=== PATIENT | male | born 1950 | race Caucasian/White ===

== ENCOUNTER 2020-11-24 17:37 | Inpatient (IN) | payer MEDICARE, OTHER ==
[~2020-11-24] VITALS: Ht 185 cm; Wt 115.6 kg
[2020-11-24] MEDS ORDERED: ONDANSETRON 4 MG/2 ML (SDV) Z0FRAN ONE (18:23)
[2020-11-24] MEDS ORDERED: NS IV 1000 ML 1,000 ML ONE (18:23)
[2020-11-24] MEDS ORDERED: ONDANSETRON 4 MG/2 ML (SDV) Z0FRAN IVP ONE (18:30)
[2020-11-24] MEDS ORDERED: NS IV 1000 ML 1,000 ML IV SCH ×2 (18:30→21:00)
--- NOTE | 2020-11-24 18:34 | ED General ---
General Stated Complaint: COVID + FEVER/CHILLS/NAUSEA/COUGH/HEADACHE Source of Information: Patient Exam Limitations: No Limitations History of Present Illness Date Seen by Provider: Nov 24, 2020 Time Seen by Provider: 18:15 Initial Comments Patient is a 70-year-old male who presents to the emergency department today with a chief complaint of "severe" headache, dry cough, feeling short of breath, nausea and upset stomach. Patient states he has had his symptoms for about a week and they suddenly got worse today. Patient does state that he has had a positive Covid test within the last week or so he does not recall the date at this time. Patient has a history of diabetes and hypertension. He denies any earache sore throat runny nose congestion. He denies chest pain. He states his cough is "terrible". Denies abdominal pain but does have nausea as stated. Denies problems with bowel or bladder. All other review of systems reviewed and negative except as stated. Timing/Duration: 1 Week Severity: Moderate Associated Systoms: Cough, Fever/Chills, Headaches, Loss of Appetite, Nausea/Vomiting, Shortness of Air Allergies and Home Medications Allergies Coded Allergies: No Known Drug Allergies (Unverified , 11/24/20) Home Medications Allopurinol 300 Mg Tablet, 300 MG PO 1600, (Reported) Aspirin 81 Mg Tablet.dr, 81 MG PO 1600, (Reported) Atorvastatin Calcium 40 Mg Tablet, 40 MG PO 1600, (Reported) Cholecalciferol (Vitamin D3) 50 Mcg Tablet, 50 MCG PO 1600, (Reported) Dexamethasone 6 Mg Tablet, 6 MG PO DAILY Prescribed by: DIEGO CLEANING on 11/28/20 1249 Empagliflozin 25 Mg Tablet, 25 MG PO 1600, (Reported) Glimepiride 4 Mg Tablet, 4 MG PO BID, (Reported) Ibuprofen 800 Mg Tablet, 800 MG PO Q8H PRN for PAIN-MILD (1-4), (Reported) Patrick-3 Acid Ethyl Esters 1 Gm Capsule, 1 GM PO 1600, (Reported) Patient Home Medication List Home Medication List Reviewed: Yes Review of Systems Review of Systems Constitutional: see HPI, chills, fever, malaise EENTM: no symptoms reported Respiratory: cough; No phlegm; short of breath Cardiovascular: no symptoms reported Gastrointestinal: loss of appetite, nausea Genitourinary: no symptoms reported Musculoskeletal: other (Body aches) Skin: no symptoms reported All Other Systems Reviewed Negative Unless Noted: Yes Physical Exam Vital Signs Vital Signs - First Documented 11/24/20 11/24/20 11/25/20 18:09 22:08 00:38 Temp 37.8 Pulse 109 Resp 24 B/P (MAP) 102/73 (83) Pulse Ox 91 O2 Delivery Room Air O2 Flow Rate 2.00 FiO2 28 Capillary Refill : Height, Weight, BMI Height: '" Weight: lbs. oz. kg; BMI Method: General Appearance: No Apparent Distress, WD/WN Eyes: Bilateral Eye Normal Inspection, Bilateral Eye PERRL, Bilateral Eye EOMI Neck: Normal Inspection, Supple Respiratory: Chest Non Tender, Lungs Clear, Normal Breath Sounds, No Accessory Muscle Use, No Respiratory Distress Cardiovascular: Regular Rate, Rhythm, No Murmur Gastrointestinal: Normal Bowel Sounds, Non Tender, Soft Extremity: Normal Capillary Refill, Normal Inspection, Normal Range of Motion, Non Tender, No Calf Tenderness, No Pedal Edema Neurologic/Psychiatric: Alert, Oriented x3, No Motor/Sensory Deficits, Normal Mood/Affect, manager cash II-XII Norm as Tested Skin: Normal Color, Warm/Dry Focused Exam Lactate Level Lactic Acid Level Progress/Results/Core Measures Suspected Sepsis SIRS Temperature: Pulse: Respiratory Rate: Blood Pressure / Mean: Results/Orders Lab Results Laboratory Tests Test 11/27/20 11:19 11/27/20 14:19 11/27/20 16:39 11/27/20 20:08 Range/Units Glucometer 200 H 160 H 165 H 70-110 MG/DL Lab Scanned Report Transfusion Reaction Form [id number] Test 11/28/20 05:26 11/28/20 11:26 Range/Units Glucometer 127 H 162 H 70-110 MG/DL Micro Results My Orders Medications Given in ED Vital Signs/I&O Capillary Refill : Progress Note : Time: 18:33 Progress Note 70-year-old male presents with a chief complaint of Covid positive, headaches, nausea, body aches, dry cough. Evaluation today includes a physical exam, single view chest x-ray, basic laboratory studies including CRP sed rate D- dimer. Patient does appear that he feels unwell. He is satting about 90 to 92% on room air. Blood pressure is somewhat soft with a systolic of about 111. Patient will be treated here in the emergency department with 1 L of normal saline and 8 mg of Zofran IV. Will also treat his headache with some Tylenol orally. His temperature is 99.9. Laboratory studies are pending at this time 1939 Patient labs reviewed. Patient has a slightly low white count at 2.6 as well as slightly low platelets. Chemistry is basically within normal limits. CRP is mildly elevated. D-dimer is mildly elevated. Chest x-ray shows patchy peripheral infiltrates bilaterally consistent with pneumonia. As the patient is Covid positive this is likely all viral pneumonia. I was able to discover that the patient's Covid test was on 21 November. 2009 Patient is feeling better, oxygen saturations consistently 90-92 I did see one episode of an 88% but this resolved back up to above 90/91. I discussed with the patient taking the monoclonal antibody Bamlanivimab. Discussed that this is an investigational and unapproved drug that is currently under the emergency use authorization for COVID-19. The patient is interested in receiving this. Discussed with him possible side effects including fever chills nausea headache shortness of breath blood pressure issues etc. We discussed side effects including pain bleeding and bruising soreness and swelling and possible infection at infusion site. Patient verbalizes understanding of the risks and benefits of receiving this investigational drug. Patient wishes to proceed. 2029 Noted that patient's oxygen saturations continue to dip even into the 86% range. Patient cannot maintain off oxygen above 90%. At this time we will admit the patient for hypoxia related to COVID-19 pneumonia. ECG Initial ECG Impression Date: Nov 24, 2020 Diagnostic Imaging Diagonstic Imaging: Xray Plain Films/CT/US/NM/MRI: chest Comments [facility]. [place], [place] NAME: GRABIEL LAY [facility] REC#: [id number] PT STATUS: REG ER : 1950 PHYSICIAN: ANNA ODEN MD ADMIT DATE: 11/24/20/ER Draft Date of Exam:11/24/20 CHEST 1 VIEW, AP/PA ONLY EXAMINATION: Chest 1 view. HISTORY: Shortness of breath, cough. COMPARISON: None available. FINDINGS: Patchy airspace opacities peripherally in the lungs. No pleural effusion or pneumothorax. Heart size is normal. IMPRESSION: Patchy airspace opacities in the lungs consistent with pneumonia. Dictated on workstation # [id number] Dict: 11/24/201929 Trans: 11/24/201931 [facility] [id number] Interpreted by: MISHA ALBA MD Electronically signed by: Departure Impression Primary Impression: Pneumonia due to COVID-19 virus Disposition: HOME, SELF-CARE Condition: Stable Departure-Patient Inst. Decision time for Depature: 20:13 [address]errals: [facility] [place],LOCAL PHYSICIAN (PCP) Primary Care Physician Patient Instructions: Coronavirus Disease 2019 (COVID-19) (DC) Add. Discharge Instructions: Drink plenty of fluids to stay well-hydrated Use the inhaler I have prescribed, albuterol 2 puffs every 4-6 hours as needed for shortness of breath. We have given you information for the monoclonal antibody injection. You will be contacted regarding a time for infusion of this medication. Scripts Dexamethasone (Decadron) 6 Mg Tablet 6 MG PO DAILY, #6 TAB Prov: DIEGO CLEANING MD 11/28/20 ANNA ODEN MD Nov 24, 2020 18:34
[2020-11-24 18:39] LABS: BASOPHILS % (AUTO) 0 % (0-10); HEMATOCRIT 49 % (40-54); LYMPHOCYTES % (AUTO) 27 % (12-44); MEAN CORPUSCULAR VOLUME 87 fL (80-99)
[2020-11-24 18:41] LABS: EOSINOPHILS % (AUTO) 1 % (0-10); HEMOGLOBIN 15.8 g/dL (13.3-17.7); LYMPHOCYTES # (AUTO) 0.7 10^3/uL (1.0-4.0); MEAN CORPUSCULAR HEMOGLOBIN 28 pg (25-34); MEAN CORPUSCULAR HGB CONC 32 g/dL (32-36); MEAN PLATELET VOLUME 11.7 fL (9.0-12.2); MONOCYTES # (AUTO) 0.2 10^3/uL (0.0-1.0); MONOCYTES % (AUTO) 8 % (0-12); NEUTROPHILS # (AUTO) 1.7 10^3/uL (1.8-7.8); NEUTROPHILS % (AUTO) 63 % (42-75); PLATELET COUNT 106 10^3/uL (130-400); WHITE BLOOD COUNT 2.6 10^3/uL (4.3-11.0)
[2020-11-24] MEDS ORDERED: ACETAMINOPHEN 500 MG TAB (TYLENOL) PO ONE (18:45)
[2020-11-24 18:54] LABS: ALANINE AMINOTRANSFERASE 22 U/L (0-55); ALBUMIN 3.7 GM/DL (3.2-4.5); ALKALINE PHOSPHATASE 73 U/L (40-136); BILIRUBIN,TOTAL 1.2 MG/DL (0.1-1.0); BUN/CREATININE RATIO 16; CALCIUM 8.7 MG/DL (8.5-10.1); CARBON DIOXIDE 24 MMOL/L (21-32); CHLORIDE 102 MMOL/L (98-107); CREATININE SERUM 0.99 MG/DL (0.60-1.30); GFR ESTIMATED > 60; GLUCOSE 108 MG/DL (70-105); POTASSIUM 3.4 MMOL/L (3.6-5.0); SODIUM 137 MMOL/L (135-145); TOTAL PROTEIN 7.2 GM/DL (6.4-8.2)
[2020-11-24 19:01] LABS: ERYTHROCYTE SEDIMENTATION RATE 6 MM/HR (0-30)
--- NOTE | 2020-11-24 19:22 | NUR ---
RADIOLOGY AT BEDSIDE
--- NOTE | 2020-11-24 19:32 | Diagnostic Imaging Report ---
EXAMINATION: Chest 1 view. HISTORY: Shortness of breath, cough. COMPARISON: None available. FINDINGS: Patchy airspace opacities peripherally in the lungs. No pleural effusion or pneumothorax. Heart size is normal. IMPRESSION: Patchy airspace opacities in the lungs consistent with pneumonia. Dictated by: Dictated on workstation # [email or web address]
[2020-11-24] MEDS ORDERED: HCTZ 25MG (20:28)
[2020-11-24] MEDS ORDERED: ALLOPURINOL 300MG (20:28)
[2020-11-24] MEDS ORDERED: JARDIANCE 25MG (20:28)
[2020-11-24] MEDS ORDERED: ASPIRIN (20:28)
[2020-11-24] MEDS ORDERED: LIPITOR (20:28)
[2020-11-24] MEDS ORDERED: VITAMIN D (20:28)
[2020-11-24] MEDS ORDERED: GABAPENTIN 300MG (20:28)
[2020-11-24] MEDS ORDERED: LISINOPRIL 40MG (20:28)
[2020-11-24] MEDS ORDERED: GLIMEPIRIDE 4 MG (20:28)
[2020-11-24] MEDS ORDERED: RT-ALBUINH IH (20:42)
--- NOTE | 2020-11-24 20:48 | NUR ---
THIS RN ET DR ODEN IN TO TALK W/ PT. PT REQUESTING TO NOT STAY, STATES HE THINKS HE'LL "FEEL BETTER AT HOME." SPO2 RANGING BETWEEN 86% ET 91%. DR ODEN AWARE. PT'S SPO2 DOES INCREASE WHEN HE'S TALKING BUT WHEN RESTING DROPS. NO OTHER C/O VOICED.
--- NOTE | 2020-11-24 21:00 | NUR ---
REPORT TO GENEVA SAENZ
[2020-11-24] MEDS ORDERED: NS IV 1000 ML 1,000 ML IV ONE (21:45)
[2020-11-24] MEDS ORDERED: RT-ALBUTEROL INHALER HFA (VENTOLIN HFA) 18 GM IH SCH (22:00)
--- NOTE | 2020-11-24 22:20 | NUR ---
GRABIEL LAY admitted to room 424-1, with an admitting diagnosis of Covid-19, on 11/24/20 from [facility] ED via Wheelchair, accompanied by ED RN.GRABIEL LAY introduced to surroundings, call light, bed controls, phone, TV, temperature control, lights, meal times, smoking policy, visitor policy, side rail policy, bathrooms and showers. Patient Rights given to patient in the handbook. GRABIEL LAY verbalizes understanding that [facility] is not responsible for the loss or damage to any personal effects or valuables that are kept in the patients posession during their hospitalization. GRABIEL LAY verbalizes understanding of Interdisciplinary Patient Education.
[2020-11-24 22:22] VITALS: BP 116/68
[2020-11-24] MEDS ORDERED: ACETAMINOPHEN 500 MG TAB (TYLENOL) PO PRN (22:30)
[2020-11-24 22:32] VITALS: BP 116/68
[2020-11-24] MEDS: NS IV 1000 ML 1,000 ML IV SCH (23:03)
[2020-11-25] VITALS (10 sets, daily range): BP systolic 102–121; BP diastolic 59–77
[2020-11-25] MEDS: RT-ALBUTEROL INHALER HFA (VENTOLIN HFA) 18 GM IH SCH ×4 (03:21→21:40)
[2020-11-25] MEDS: inSUlin ASPART (NovoLOG) 1 UNIT/0.01 ML (CHARGE PER UNIT) SC SCH ×4 (05:14→20:39)
[2020-11-25 05:30] LABS: BASOPHILS % (AUTO) 0 % (0-10); LYMPHOCYTES % (AUTO) 25 % (12-44); MEAN CORPUSCULAR HEMOGLOBIN 28 pg (25-34); MEAN CORPUSCULAR HGB CONC 32 g/dL (32-36); MEAN CORPUSCULAR VOLUME 88 fL (80-99)
[2020-11-25 05:32] LABS: EOSINOPHILS % (AUTO) 0 % (0-10); HEMATOCRIT 43 % (40-54); HEMOGLOBIN 13.7 g/dL (13.3-17.7); LYMPHOCYTES # (AUTO) 0.6 10^3/uL (1.0-4.0); MONOCYTES # (AUTO) 0.2 10^3/uL (0.0-1.0); MONOCYTES % (AUTO) 8 % (0-12); NEUTROPHILS # (AUTO) 1.7 10^3/uL (1.8-7.8); NEUTROPHILS % (AUTO) 67 % (42-75); PLATELET COUNT 93 10^3/uL (130-400); WHITE BLOOD COUNT 2.6 10^3/uL (4.3-11.0)
[2020-11-25 05:57] LABS: ALANINE AMINOTRANSFERASE 18 U/L (0-55); ALBUMIN 3.2 GM/DL (3.2-4.5); ALKALINE PHOSPHATASE 64 U/L (40-136); BUN/CREATININE RATIO 18; CALCIUM 7.7 MG/DL (8.5-10.1); CARBON DIOXIDE 24 MMOL/L (21-32); CHLORIDE 106 MMOL/L (98-107); CREATININE SERUM 0.82 MG/DL (0.60-1.30); GFR ESTIMATED > 60; GLUCOSE 89 MG/DL (70-105); SODIUM 138 MMOL/L (135-145); TOTAL PROTEIN 5.9 GM/DL (6.4-8.2)
[2020-11-25] MEDS ORDERED: REMDESIVIR INJ 200 MG in NS (IVPB) 210 ML IV ONE (09:00)
[2020-11-25] MEDS: NS IV 1000 ML 1,000 ML IV SCH ×2 (09:24→18:27)
[2020-11-25] MEDS ORDERED: LISI40TA PO (13:47)
[2020-11-25] MEDS ORDERED: EMPA25TA PO (13:47)
[2020-11-25] MEDS ORDERED: IBUP-1780 PO (13:47)
[2020-11-25] MEDS ORDERED: ALLO300T2 PO (13:47)
[2020-11-25] MEDS ORDERED: CHOL200025 PO (13:47)
[2020-11-25] MEDS ORDERED: HYDR25TA4 PO (13:47)
[2020-11-25] MEDS ORDERED: GLIM4TAB5 PO (13:47)
[2020-11-25] MEDS ORDERED: ATOR40TA70 PO (13:47)
[2020-11-25] MEDS ORDERED: OMEG-105 PO (13:47)
[2020-11-25] MEDS ORDERED: ASPI-1238 PO (13:47)
--- NOTE | 2020-11-25 14:08 | NUR ---
SPOKE WITH THE PT (I CALLED HIS CELL PHONE) AND WENT THRU THE EXT ME HISTORY TO COMPLETE THE MED REC PT WAS ABLE TO NAME ALL HIS MEDICATIONS WELL WHEN/HOW HE TAKES EACH OTC MEDS: LAINA Avila
--- NOTE | 2020-11-25 14:40 | History & Physical-Hospitalist ---
History of Present Illness HPI/Chief Complaint Pt is a 70yoCM with a PMH of HTN and NIDDMII who presented to the ER due to headache, cough, and SOB. He states he was in a casion in [place] last week and then became symptomatic with chills and fever roughly 9 days ago. He tested positive for COVID and continued to do worse prompting evaluation in the ER. He was found to be hypoxic with oxygen saturations in the mid 80s and admitted for further care. This afternoon he reports he is feeling better. He denies any cough to me but is actively coughing while I am in the room. Source: patient Date Seen 11/25/20 Time Seen by a Provider: 15:38 Attending Physician Stefanie Ferguson MD PCP No,Local Physician Referring Physician Date of Admission Nov 24, 2020 at 21:01 Home Medications & Allergies Home Medications Reviewed patient Home Medication Reconciliation performed by pharmacy medication reconciliations satellite installation technician and/or nursing. Patients Allergies have been reviewed. Allergies Allergies Coded Allergies No Known Drug Allergies (Sveptxqelv64/27/20) Past Xhicety-Hlhfyh-Nltpqs Hx Past Med/Social Hx: Reviewed Nursing Past Med/Soc Hx Patient Social History Alcohol Use: Occasionally Uses Recreational Drug Use: No Smoking Status: Never a Smoker Recent Foreign Travel: No Contact w/other who traveled: No Recent Hopitalizations: No Recent Infectious Disease Expo: No Immunizations Up To Date Date of Pneumonia Vaccine: Nov 24, 2018 Date of Influenza Vaccine: Sep 24, 2020 Past Medical History Cardiac: Hypertension Endocrine: Diabetes, Non-Insulin dep History of Blood Disorders: No Adverse Reaction to Blood Denny: No Family History Reviewed Nursing Family Hx No Pertinent Family Hx Review of Systems Constitutional: chills, diaphoresis, fever, malaise EENTM: no symptoms reported Respiratory: cough, short of breath Cardiovascular: No chest pain Gastrointestinal: No abdominal pain; nausea; No vomiting Genitourinary: no symptoms reported Musculoskeletal: no symptoms reported Skin: no symptoms reported Psychiatric/Neurological: Headache Physical Exam Physical Exam Vital Signs Vital Signs - First Documented 11/24/20 11/24/20 11/25/20 18:09 22:08 00:38 Temp 37.8 Pulse 109 Resp 24 B/P (MAP) 102/73 (83) Pulse Ox 91 O2 Delivery Room Air O2 Flow Rate 2.00 FiO2 28 Capillary Refill : Less Than 3 Seconds Height, Weight, BMI Height: '" Weight: lbs. oz. kg; 33.77 BMI Method: General Appearance: No Apparent Distress, WD/WN HEENT: PERRL/EOMI, Moist Mucous Membranes; No Scleral Icterus (L), No Scleral Icterus (R) Neck: Normal Inspection, Supple Respiratory: Lungs Clear, No Accessory Muscle Use, Other (on 2lpm) Cardiovascular: Regular Rate, Rhythm, No Murmur Gastrointestinal: Normal Bowel Sounds, Non Tender, Soft Extremity: Normal Capillary Refill, No Calf Tenderness, No Pedal Edema Neurologic/Psychiatric: Alert, Oriented x3, Normal Mood/Affect Results Results/Procedures Labs Laboratory Tests 11/24/20 18:19 11/25/20 05:04 Patient resulted labs reviewed. Imaging: Reviewed Imaging Report Imaging [facility]. [place], [place] NAME: GRABIEL LAY [facility] REC#: [id number] PT STATUS: ADM IN : 1950 PHYSICIAN: ANNA ODEN MD ADMIT DATE: 11/24/20 Signed Date of Exam:11/24/20 CHEST 1 VIEW, AP/PA ONLY EXAMINATION: Chest 1 view. HISTORY: Shortness of breath, cough. COMPARISON: None available. FINDINGS: Patchy airspace opacities peripherally in the lungs. No pleural effusion or pneumothorax. Heart size is normal. IMPRESSION: Patchy airspace opacities in the lungs consistent with pneumonia. Dictated by: Dictated on workstation # [email or web address] Dict: 11/24/201929 Trans: 11/24/202199 [facility] [phone] Interpreted by: MISHA ALBA MD Electronically signed by: MISHA ALBA MD 11/24/202199 Assessment/Plan Admission Diagnosis Acute hypoxic respiratory failure due to COVID19 Admission Status: Inpatient Order (span 2 midnights) Reason for Inpatient Admission: see below Assessment and Plan Acute hypoxic respiratory failure due to COVID19 Continue on decadron and Remdesivir Convalescent plasma ordered Per Blood Bank plasma currently on around 5 days back log Procalcitonin is negative so defer abx MAT Protocol IS Lovenox HTN Reports history of but BP WNL currently, trend Hyperglycemia Likely worsened by decadron, trend Diagnosis/Problems Diagnosis/Problems (1) Acute respiratory failure (2) Pneumonia due to COVID-19 virus Status: Acute Clinical Quality Measures DVT/VTE Risk/Contraindication: Risk Factor Score Per Nursin RFS Level Per Nursing on Admit: 4+=Very High DIEGO CLEANING MD Nov 25, 2020 14:39
--- NOTE | 2020-11-25 15:28 | NUR ---
"RD ASSESSMENT PMHx: DM; HTN; PT INTERACTION: Note pt is currently in COVID isolation, per chart review. Note all diet information for nutrition assessment is per Yefri RN, or per chart review. Yefri states current appetite appears good. Note avg PO intake 63% x2meal, per chart review. Yefri states no issues with nausea, vomiting, constipation, or diarrhea that he is aware of. Note last BM was 11/25, and pt not currently on bowel regimen per chart review. Note unable to determine recent wt hx, per chart review. Note unable to determine current level of DM management and note unable to determine recent HbA1c, per chart review. ABNORMAL NUTRITION-RELATED LAB VALUES LOW: K 3.0; Ca 7.7; Pro 5.9; HIGH: AST 40; Est. kcal needs: 3008-7325 kcal | 15-20 kcal/kg Est. Pro needs: 93-116 g Pro | 0.8-1.0 g Pro/kg PES STATEMENT: Inadequate oral intake (NI-2.1) related to loss of appetite as evidenced by chart review, and avg PO intake 63% x2meal. INTERVENTION: Continue with current diet order of CHO 60g/m 1snack diet. Pt may benefit from nutrition supplementation if PO intake declines. Did not offer diet education on DM management d/t isolation precautions. Will continue to follow and reassess as pt needs, intake, and status change. Jodi TOVAR, MS RD LD [phone] cell"
[2020-11-25] MEDS: ENOXAPARIN 40 MG/0.4 ML (LOVENOX) SYR SQ SCH (17:57)
--- NOTE | 2020-11-25 18:30 | NUR ---
Resident is receiving Convalescent Plasma, tolerating well.
[2020-11-26] VITALS (7 sets, daily range): BP systolic 96–122; BP diastolic 56–70
[2020-11-26] MEDS: RT-ALBUTEROL INHALER HFA (VENTOLIN HFA) 18 GM IH SCH ×4 (02:05→21:54)
[2020-11-26] MEDS: NS IV 1000 ML 1,000 ML IV SCH (04:18)
[2020-11-26] MEDS: inSUlin ASPART (NovoLOG) 1 UNIT/0.01 ML (CHARGE PER UNIT) SC SCH ×4 (06:02→20:48)
[2020-11-26] MEDS: dexAMETHasone 6 MG TAB (DECADRON) PO SCH (06:22)
[2020-11-26] MEDS: REMDESIVIR INJ 100 MG in NS (IVPB) 230 ML IV SCH (08:32)
--- NOTE | 2020-11-26 14:52 | Progress Note - Hospitalist ---
Subjective HPI/CC On Admission Date Seen by Provider: Nov 26, 2020 Time Seen by Provider: 14:48 Pt is a 70yoCM with a PMH of HTN and NIDDMII who presented to the ER due to headache, cough, and SOB. He states he was in a casion in [place] last week and then became symptomatic with chills and fever roughly 9 days ago. He tested positive for COVID and continued to do worse prompting evaluation in the ER. He was found to be hypoxic with oxygen saturations in the mid 80s and admitted for further care. This afternoon he reports he is feeling better. He denies any cough to me but is actively coughing while I am in the room. Subjective/Events-last exam Pt reports feeling much better today and is actually requesting DC home. Focused Exam Lactate Level 11/24/20 18:19: Lactic Acid Level 1.04 Objective Exam Vital Signs Vital Signs Date Time Temp Pulse Resp B/P (MAP) Pulse Ox O2 Delivery O2 Flow Rate FiO2 11/26/20 12:00 36.7 69 20 117/58 (77) 94 Room Air 11/25/20 20:05 1.00 11/25/20 00:38 28 Capillary Refill : Less Than 3 Seconds General Appearance: No Apparent Distress, Chronically ill Respiratory: Lungs Clear, No Respiratory Distress Cardiovascular: Regular Rate, Rhythm, No Murmur Gastrointestinal: Normal Bowel Sounds, Non Tender, Soft Neurologic/Psychiatric: Alert, Oriented x3 Results/Procedures Lab Patient resulted labs reviewed. Imaging: Reviewed Imaging Report Assessment/Plan Assessment and Plan Assess & Plan/Chief Complaint Acute hypoxic respiratory failure due to COVID19 Continue on decadron and Remdesivir Convalescent plasma ordered Per Blood Bank plasma currently on around 5 days back log Procalcitonin is negative so defer abx MAT Protocol IS Lovenox HTN Reports history of but BP WNL currently, trend Hyperglycemia Likely worsened by decadron, trend Fasting blood sugar was 136 DVT ppx: Lovenox Diagnosis/Problems Diagnosis/Problems (1) Acute respiratory failure (2) Pneumonia due to COVID-19 virus Status: Acute Clinical Quality Measures DVT/VTE Risk/Contraindication: Risk Factor Score Per Nursin RFS Level Per Nursing on Admit: 4+=Very High DIEGO CLEANING MD Nov 26, 2020 14:52
[2020-11-26] MEDS: ENOXAPARIN 40 MG/0.4 ML (LOVENOX) SYR SQ SCH (17:04)
[2020-11-27] VITALS: BP 114/66
[2020-11-27] MEDS: RT-ALBUTEROL INHALER HFA (VENTOLIN HFA) 18 GM IH SCH ×4 (01:36→21:00)
[2020-11-27 03:37] VITALS: BP 121/70
[2020-11-27] MEDS: NS IV 1000 ML 1,000 ML IV SCH (03:45)
[2020-11-27] MEDS: inSUlin ASPART (NovoLOG) 1 UNIT/0.01 ML (CHARGE PER UNIT) SC SCH ×4 (05:31→20:30)
[2020-11-27] MEDS: dexAMETHasone 6 MG TAB (DECADRON) PO SCH (06:01)
[2020-11-27] MEDS: REMDESIVIR INJ 100 MG in NS (IVPB) 230 ML IV SCH (08:19)
[2020-11-27 08:33] VITALS: BP 127/70
--- NOTE | 2020-11-27 16:26 | Progress Note - Hospitalist ---
Subjective HPI/CC On Admission Date Seen by Provider: Nov 27, 2020 Time Seen by Provider: 16:23 Pt is a 70yoCM with a PMH of HTN and NIDDMII who presented to the ER due to headache, cough, and SOB. He states he was in a casion in [place] last week and then became symptomatic with chills and fever roughly 9 days ago. He tested positive for COVID and continued to do worse prompting evaluation in the ER. He was found to be hypoxic with oxygen saturations in the mid 80s and admitted for further care. This afternoon he reports he is feeling better. He denies any cough to me but is actively coughing while I am in the room. Subjective/Events-last exam Pt reports doing well. No complaints. Focused Exam Lactate Level 11/24/20 18:19: Lactic Acid Level 1.04 Objective Exam Vital Signs Vital Signs Date Time Temp Pulse Resp B/P (MAP) Pulse Ox O2 Delivery O2 Flow Rate FiO2 11/27/20 14:43 95 Room Air 11/27/20 08:33 36.6 68 18 127/70 (89) 11/25/20 20:05 1.00 11/25/20 00:38 28 Capillary Refill : Less Than 3 Seconds General Appearance: No Apparent Distress, WD/WN Respiratory: Lungs Clear, No Accessory Muscle Use, No Respiratory Distress Cardiovascular: Regular Rate, Rhythm, No Murmur Neurologic/Psychiatric: Alert, Oriented x3 Results/Procedures Lab Patient resulted labs reviewed. Imaging: Reviewed Imaging Report Assessment/Plan Assessment and Plan Assess & Plan/Chief Complaint Acute hypoxic respiratory failure due to COVID19 Continue on decadron and Remdesivir Convalescent plasma arrived yesterday Procalcitonin is negative so defer abx MAT Protocol IS Lovenox Hopefully home tomorrow HTN BP well controlled Hyperglycemia Likely worsened by decadron, trend DVT ppx: Lovenox Diagnosis/Problems Diagnosis/Problems (1) Acute respiratory failure Qualifiers: Respiratory failure complication: hypoxia Qualified Codes: J96.01 - Acute respiratory failure with hypoxia (2) Pneumonia due to COVID-19 virus Status: Acute Clinical Quality Measures DVT/VTE Risk/Contraindication: Risk Factor Score Per Nursin RFS Level Per Nursing on Admit: 4+=Very High DIEGO CLEANING MD Nov 27, 2020 16:26
[2020-11-27] MEDS: ENOXAPARIN 40 MG/0.4 ML (LOVENOX) SYR SQ SCH (16:46)
[2020-11-27 20:16] VITALS: BP 118/77
[2020-11-28] MEDS: NS IV 1000 ML 1,000 ML IV SCH (00:39)
[2020-11-28] MEDS: RT-ALBUTEROL INHALER HFA (VENTOLIN HFA) 18 GM IH SCH ×2 (03:00→06:11)
[2020-11-28] MEDS: inSUlin ASPART (NovoLOG) 1 UNIT/0.01 ML (CHARGE PER UNIT) SC SCH ×2 (05:28→11:35)
[2020-11-28] MEDS: dexAMETHasone 6 MG TAB (DECADRON) PO SCH (06:10)
[2020-11-28 08:00] VITALS: BP 123/92
[2020-11-28] MEDS: REMDESIVIR INJ 100 MG in NS (IVPB) 230 ML IV SCH (09:21)
--- NOTE | 2020-11-28 12:47 | Discharge Summary ---
Diagnosis/Chief Complaint Date of Admission Nov 24, 2020 at 21:01 Date of Discharge Discharge Date: Nov 27, 2020 Admission Diagnosis Acute hypoxic respiratory failure due to COVID19 Primary Care No,Local Physician Discharge Diagnosis (1) Acute respiratory failure (2) Pneumonia due to COVID-19 virus Status: Acute Discharge Summary Discharge Physical Exam Allergies: Coded Allergies: No Known Drug Allergies (Unverified , 11/24/20) Vitals & I&Os Vital Signs Date Time Temp Pulse Resp B/P (MAP) Pulse Ox O2 Delivery O2 Flow Rate FiO2 11/28/20 14:28 11/28/20 08:00 35.6 68 20 93 Room Air 11/25/20 20:05 1.00 11/25/20 00:38 28 General Appearance: No Apparent Distress, WD/WN Respiratory: Lungs Clear, No Respiratory Distress Cardiovascular: Regular Rate, Rhythm, No Murmur Neurologic/Psychiatric: Alert, Oriented x3 Hospital Course Pt was admited due to acute hypoxic respiratory failure due to COVID19. He was treated with remdesivir, decadron, and received convalescent plasma and did well. He was able to wean off of oxygen and felt very well. He completed 4 days of Remdesivir and was requesting discharge home so course was abbreviated after discussion of typical 5 day course. He was discharged in stable condition to follow up with a primary care doctor. Labs (last 24 hrs) Microbiology 11/24/20 Influenza Types A,B Antigen (DAIJA) - Final, Complete 11/24/20 Blood Culture - Preliminary, Resulted No growth Patient resulted labs reviewed. Pending Labs Imaging: Reviewed Imaging Report Discussion & Recommendations Discharge Planning: >30 minutes discharge planning Discharge Home Medications: Active Scripts Active Decadron (Dexamethasone) 6 Mg Tablet 6 Mg PO DAILY Reported Vitamin D3 (Cholecalciferol (Vitamin D3)) 50 Mcg Tablet 50 Mcg PO 1600 Ibuprofen 800 Mg Tablet 800 Mg PO Q8H PRN Glimepiride 4 Mg Tablet 4 Mg PO BID Troy-3 Acid Ethyl Esters 1 Gm Capsule 1 Gm PO 1600 Aspirin EC (Aspirin) 81 Mg Tablet.dr 81 Mg PO 1600 Allopurinol 300 Mg Tablet 300 Mg PO 1600 Jardiance (Empagliflozin) 25 Mg Tablet 25 Mg PO 1600 Atorvastatin Calcium 40 Mg Tablet 40 Mg PO 1600 Instructions to patient/family Please see electronic discharge instructions given to patient. Clinical Quality Measures DVT/VTE Risk/Contraindication: Risk Factor Score Per Nursin RFS Level Per Nursing on Admit: 4+=Very High Problem Qualifiers (1) Acute respiratory failure: Respiratory failure complication: hypoxia Qualified Codes: J96.01 - Acute respiratory failure with hypoxia DIEGO CLEANING MD Nov 28, 2020 12:47
[2020-11-28] MEDS ORDERED: DEXA6TAB6 PO (12:49)
--- NOTE | 2020-11-28 12:51 | Discharge Inst-Simple/Standard ---
Discharge Inst-Standard Patient Instructions/Follow Up Plan of Care/Instructions/FU: Please continue to take your medications as written. Please follow up with a primary care doctor to follow up this hospital stay. Please follow the [facility] guidelines for continued isolation. Activity as Tolerated: Yes Discharge Diet: Cardiac Diet Return to The Hospital For: Chest pain, shortness of breath, fever, confusion, if you feel you are getting worse. DIEGO CLEANING MD Nov 28, 2020 12:51
== END 2020-11-28 14:15 | disposition home or self-care (01) | DRG 177 ==
LOC: ER 17:40 → 4TH 21:01
PROVIDERS: ADMIT Internal Medicine; ATTEND Internal Medicine
PROC: XW033E5 Introduction of Remdesivir Anti-infective into Peripheral Vein, Percutaneous Approach, New Technology Group 5 (ICD-10-PCS; principal; 2020-11-25)
PROC: XW13325 Transfusion of Convalescent Plasma (Nonautologous) into Peripheral Vein, Percutaneous Approach, New Technology Group 5 (ICD-10-PCS; 2020-11-25)
DX: U07.1 COVID-19 (principal); J12.89 Other viral pneumonia; J96.01 Acute respiratory failure with hypoxia; E11.65 Type 2 diabetes mellitus with hyperglycemia; Z79.84 Long term (current) use of oral hypoglycemic drugs; I10 Essential (primary) hypertension; Z79.1 Long term (current) use of non-steroidal anti-inflammatories (NSAID); Z79.82 Long term (current) use of aspirin; Z79.899 Other long term (current) drug therapy; Z73.0 Burn-out
CPT/HCPCS: 36415; 71045; 80053; 82962; 83605; 84145; 85025; 85379; 85652; 86141; 86900; 86901; 87040; 87804; 94640; 94664; 94760; 96361; 96374